=== PATIENT | female | born 1985 | race Caucasian/White ===

== ENCOUNTER 2020-06-13 18:39 | Emergency (ER) | payer OTHER ==
[~2020-06-13] VITALS: Ht 162.6 cm; Wt 72.6 kg
[2020-06-13 18:43] VITALS: BP_SYST 122
[2020-06-13] MEDS ORDERED: KETOROLAC TROMETHAMINE 60 MG/2 ML VIAL IM ONE ×2 (19:00→19:01)
[2020-06-13] MEDS ORDERED: MORPHINE 4 MG/ML INJ. SYRINGE IM ONE (19:45)
[2020-06-13] MEDS ORDERED: MORPHINE 4 MG/ML INJ. SYRINGE ONE (19:51)
[2020-06-13 22:30] VITALS: BP_SYST 108
== END 2020-06-13 22:30 | disposition home or self-care (01) ==
LOC: SED 18:39
DX: M54.40 Lumbago with sciatica, unspecified side (principal); E07.9 Disorder of thyroid, unspecified
CPT/HCPCS: 72100; 81025; 96372; 99284; J1885; J2270